=== PATIENT | female | born 1965 | race Caucasian/White ===

== ENCOUNTER 2021-09-06 04:23 | Day surgery (SDC) | payer BC ==
[2021-09-02 12:25] VITALS: BMI 35.2
[2021-09-06] MEDS ORDERED: MIDAZOLAM HCL 2 MG/2 ML SINGLE DOSE VIAL ONE (07:23)
[2021-09-06] MEDS ORDERED: SUCCINYLCHOLINE CHLORIDE 200 MG/10 ML SYRINGE ONE (07:24)
[2021-09-06] MEDS ORDERED: PROPOFOL 20 ML ONE ×2 (07:24)
[2021-09-06] MEDS ORDERED: ONDANSETRON 4 MG/2 ML VIAL IVPUSH PRN (08:39)
[2021-09-06] MEDS ORDERED: oxyCODONE HCL 5 MG TABLET PO PRN ×2 (08:39)
[2021-09-06] MEDS ORDERED: LACTATED RINGERS SOLUTION 1,000 ML IV SCH (08:45)
[2021-09-06 13:06] VITALS: BP 119/70; PULSE 78; TEMP 98
== END 2021-09-06 11:45 | disposition home or self-care (01) ==
LOC: JASU-SURG 04:23
PROVIDERS: ATTEND Obstetrics & Gynecology
PROC: 0UJD8ZZ Inspection of Uterus and Cervix, Via Natural or Artificial Opening Endoscopic (ICD-10-PCS; 2021-09-06)
PROC: 0UBC7ZX Excision of Cervix, Via Natural or Artificial Opening, Diagnostic (ICD-10-PCS; principal; 2021-09-06 07:30)
PROC: 0UDB7ZX Extraction of Endometrium, Via Natural or Artificial Opening, Diagnostic (ICD-10-PCS; 2021-09-06 07:30)
DX: N95.0 Postmenopausal bleeding (principal); N84.1 Polyp of cervix uteri
CPT/HCPCS: 81025; 88305-TC; 94760

== ENCOUNTER 2024-02-25 02:05 | Inpatient (IN) | payer BC ==
[2024-02-25 02:12] VITALS: BMI 36.6
[2024-02-25] MEDS ORDERED: ALBUTEROL SO4 2.5/IPRATROPIUM 0.5 INH SOL 3 ML VIAL.NEB. NEB ONE (02:24)
[2024-02-25] MEDS ORDERED: DEXAMETHASONE 4 MG TABLET (FP) ONE (02:24)
[2024-02-25] MEDS: ALBUTEROL SO4 2.5/IPRATROPIUM 0.5 INH SOL 3 ML VIAL.NEB. NEB ONE (02:30)
[2024-02-25] MEDS: DEXAMETHASONE 4 MG TABLET (FP) PO ONE (02:30)
[2024-02-25 03:30] LABS: BASO % 0.4 % (0-2.0); EOS % 2.9 % (0-4.5); HEMATOCRIT 39.5 % (32.4-45.2); HEMOGLOBIN 13.4 GM/dL (10.7-15.3); LYMPH % 50.6 % (8-40); MCH 30.1 pg (25.7-33.7); MEAN CELL VOLUME 88.4 fl (80-96); MEAN PLT VOLUME 7.9 fl (7.5-11.1); MONO % 15.1 % (3.8-10.2); PLATELET COUNT 192 10^3/uL (134-434); RBC 4.47 M/mm3 (3.60-5.2); RDW 13.8 % (11.6-15.6); WHITE BLOOD COUNT 4.5 K/mm3 (4.0-10.0)
[2024-02-25 03:47] LABS: POTASSIUM 3.8 mmol/L (3.5-5.1)
[2024-02-25 03:48] LABS: CALCIUM 8.9 mg/dL (8.5-10.1)
[2024-02-25 03:49] LABS: ALBUMIN 3.8 g/dl (3.4-5.0); BLOOD UREA NITROGEN 12.1 mg/dL (7-18)
[2024-02-25 03:52] LABS: CREATININE 0.7 mg/dL (0.55-1.3)
[2024-02-25 03:54] LABS: BILIRUBIN,TOTAL 0.3 mg/dL (0.2-1); TOT PROT 7.3 g/dl (6.4-8.2)
[2024-02-25] MEDS: SODIUM CHLORIDE 0.9% 500 ML INFUS.BAG IV ONE (04:43)
[2024-02-25 05:35] LABS: INR 0.97 (0.83-1.09)
[2024-02-25 05:38] LABS: ACTIVATED PTT 33.2 SECONDS (25.2-36.5)
[2024-02-25] MEDS ORDERED: AZITHROMYCIN 500 MG VIAL IVPB ONE (05:47)
[2024-02-25] MEDS ORDERED: cefTRIAXone SODIUM 1 GM VIAL ONE (05:47)
[2024-02-25] MEDS ORDERED: ALBUTEROL SO4 0.083% IH SOL 2.5 MG/3 ML VIAL.NEB. NEB PRN (05:59)
[2024-02-25] MEDS: CEFTRIAXONE 1 GM in DEXTROSE 5%-WATER - 100 ML IVPB ONE (05:59)
[2024-02-25] MEDS: AZITHROMYCIN IVPB 500 MG in DEXTROSE 5%-WATER - 250 ML IVPB ONE (05:59)
[2024-02-25] MEDS ORDERED: ACETAMINOPHEN 325 MG TABLET (FP) PO PRN (06:01)
[2024-02-25] MEDS: ENOXAPARIN NA (PORCINE) 40 MG/0.4 ML DISP.SYRIN SQ SCH (09:57)
[2024-02-25] MEDS: ALBUTEROL SO4 2.5/IPRATROPIUM 0.5 INH SOL 3 ML VIAL.NEB. NEB SCH (09:58)
[2024-02-25] MEDS: LORATADINE 10 MG TABLET PO SCH (09:58)
[2024-02-25] MEDS: FLUTICASONE PROP 0.05% 16 GM NASAL SPRAY NS SCH (09:58)
[2024-02-26] MEDS: AZITHROMYCIN IVPB 500 MG/250 ML BAG IVPB SCH (09:49)
[2024-02-26] MEDS: CEFTRIAXONE 1 GM in DEXTROSE 5%-WATER - 50 ML IVPB SCH (09:49)
[2024-02-26] MEDS: predniSONE 20 MG TABLET (UD) PO SCH (12:04)
[2024-02-26] MEDS: BUDESONIDE/FORMETEROL FUMARATE 80/4.5 mcg INHALER IH SCH (12:04)
[2024-02-26] MEDS: PROMETHAZINE HCL ORAL SYRUP 6.25 MG/5 ML (BULK BOTTLE) PO PRN (13:13)
[2024-02-26 18:07] VITALS: RESP 17
[2024-02-27] MEDS: guaiFENesin/D-METHORPHAN HB 10 ML UNIT-DOSE CUPS PO PRN (06:31)
[2024-02-27 06:46] VITALS: TEMP 98.3
[2024-02-27 10:14] LABS: ALBUMIN 4.3 g/dl (3.4-5.0); ALK PHOS 57 U/L (45-117); ANION GAP 10 mmol/L (4-13); BILIRUBIN,TOTAL 0.3 mg/dl (0.2-1); CALCIUM 9.5 mg/dl (8.5-10.1); CHLORIDE 105 mmol/L (98-107); CO2 28 mmol/L (21-32); CREATININE 0.6 mg/dl (0.6-1.3); GLUCOSE,RANDOM 90 mg/dl (74-106); POTASSIUM 3.6 mmol/L (3.5-5.1); SGOT/AST 26 U/L (15-37); SGPT/ALT 31 U/L (7-52); SODIUM 143 mmol/L (136-145); TOT PROT 7.1 g/dl (6.4-8.2)
[2024-02-27 10:34] VITALS: BP 127/66; PULSE 69
== END 2024-02-27 12:22 | disposition home or self-care (01) | DRG 194 ==
LOC: FER 02:05 → FM/S 05:50 → UNDOADMOB 05:57 → FM/S 05:57 → OBSVTOIN 05:58 → INTOOBSV 05:58 → FM/S 06:49
PROVIDERS: ADMIT Internal Medicine
DX: J18.9 Pneumonia, unspecified organism (principal); E87.1 Hypo-osmolality and hyponatremia; E66.9 Obesity, unspecified; Z68.36 Body mass index [BMI] 36.0-36.9, adult; M54.30 Sciatica, unspecified side; E78.5 Hyperlipidemia, unspecified; R73.03 Prediabetes
CPT/HCPCS: 0241U-QW; 36415; 71275-TC; 80053; 84484; 85025; 85379; 85610; 85730; 87040; 87899; 93005; 94640; 99285-25; G0378; Q9967